=== PATIENT | female | born 1940 | race Caucasian/White ===

== ENCOUNTER 2021-05-25 09:03 | Day surgery (SDC) | payer MEDICARE ==
[~2021-05-25 09:03] MED LIST: ALPRAZolam 0.25 MG TAB PO PRN; HYDROmorphone 0.5 MG/0.5 ML SYRINGE IVP PRN
[2021-05-25 09:41] LABS: Mean Platelet Volume 7.9; Platelet Count 470 k/uL (150-450)
[2021-05-25 09:45] VITALS: TEMP 98
[2021-05-25 10:09] VITALS: RESP 16
--- NOTE | 2021-05-25 10:58 | XR ---
EXAMINATION TYPE: XR chest 1V portable DATE OF EXAM: 05/25/2021 HISTORY: Status post left lung biopsy COMPARISON: None. TECHNIQUE: Single view of the chest is submitted. FINDINGS: No evidence for pneumothorax. Left perihilar and left lower lobe mass with postobstructive the infilt rate and moderate pleural effusion. The heart is stable. Degenerative changes are seen of the dorsal spine. IMPRESSION: 1. No evidence for pneumothorax in a patient who is status post left lung biopsy.
--- NOTE | 2021-05-25 12:50 | CT ---
EXAMINATION TYPE: CT biopsy lung LT DATE OF EXAM: 05/25/2021 COMPARISON: CT chest 04/02/2021 HISTORY: Left lung Bx The procedure is discussed with the patient, the risks, complications, benefits and alternatives, wer e discussed and any questions were answered. Informed consent was obtained. The patient is placed p wild on the CT table, prepped and draped in the usual sterile fashion. Utilizing a 18-gauge core biopsy needle access into the left lung mass was achieved with a single pas s performed. Pathology pending. All elements of maximal barrier technique were utilized. The patien t remained stable throughout the procedure with no immediate postprocedural complication. IMPRESSION: 1. Successful CT guided biopsy left lung mass
--- NOTE | 2021-05-25 13:17 | XR ---
EXAMINATION TYPE: XR chest 1V portable DATE OF EXAM: 05/25/2021 COMPARISON: 05/25/2021 HISTORY: Post lung biopsy TECHNIQUE: Single frontal view of the chest is obtained. FINDINGS: Left-sided consolidation, mass pleural effusion stable. No sizable pneumothorax. Underlyin g COPD noted. Diffuse osteopenia. Atherosclerotic change aorta. Calcified granuloma right upper lobe and calcified nodule right suprahilar region. Stable apical pleural thickening or mass. IMPRESSION: No pneumothorax post lung biopsy
[2021-05-25 14:49] VITALS: BP 114/57; PULSE 76
== END 2021-05-25 13:40 | disposition home or self-care (01) ==
LOC: RADPROMAIN 09:03
PROVIDERS: ATTEND Internal Medicine Critical Care Medicine
DX: J44.9 Chronic obstructive pulmonary disease, unspecified (principal); F17.200 Nicotine dependence, unspecified, uncomplicated
CPT/HCPCS: 32408; 36415; 71045; 77012; 85049; 85610; 88305; 88341; 88342